=== PATIENT | male | born 1970 | race Caucasian/White ===

== ENCOUNTER 2018-09-23 10:45 | Inpatient (IN) ==
[2018-09-23] MEDS ORDERED: SODIUM CHLORIDE 0.9% 1000ML 1,000 ML IV ONE ×2 (11:39→12:57)
[2018-09-23] MEDS ORDERED: PROMETHAZINE 25 MG/51 ML BAG IV STA (11:39)
[2018-09-23] MEDS ORDERED: MoRPHine SULFATE 4 MG/ML 1 ML CARP\\VIAL IV STA (11:40)
--- NOTE | 2018-09-23 11:45 | Emergency Department Note ---
History of Present Illness General Chief complaint: Vomiting Stated complaint: THROWING UP 3 DAYS, UNABLE TO EAT, PAIN IN ABD Time Seen by Provider: 09/23/18 11:29 History of Present Illness Maximum Pain Intensity: 7 This patient is a 48-year-old male who presents to the emergency department via private vehicle with complaints of vomiting and abdominal pain for the last 4 days. He describes the abdominal pain in his lower abdomen is a cramping, intermittent sensation. He rates his discomfort a 7/10. No hematemesis. No coffee-ground emesis. The patient also has not had a bowel movement in 4 days. This is unusual for him. He denies any known sick contacts. He tried Zofran at home with minimal relief of his symptoms. Home Medications Home Medications Medication Instructions Recorded Confirmed Type amlodipine 10 mg PO DAILY 07/13/18 09/23/18 History aspirin 81 mg PO DAILY 07/13/18 09/23/18 History clopidogrel [Plavix] 75 mg PO DAILY 07/13/18 09/23/18 History duloxetine 60 mg PO DAILY 07/13/18 09/23/18 History lamotrigine [Lamictal] 200 mg PO HS 07/13/18 09/23/18 History losartan 100 mg PO DAILY 07/13/18 09/23/18 History metformin 1,000 mg PO DAILY 07/13/18 09/23/18 History trazodone 100 mg PO HS 07/13/18 09/23/18 History atorvastatin 40 mg PO DAILY #0 tab 07/15/18 09/23/18 Rx insulin glargine [Basaglar KwikPen 22 unit SUBCUT DAILY 08/13/18 09/23/18 History U-100 Insulin] gabapentin 400 mg PO TID 09/23/18 09/23/18 History Allergies Allergy/AdvReac Type Severity Reaction Status Date / Time No Known Allergies Allergy Unverified 09/23/18 11:35 Past Med/Surg History Medical History Diabetes HTN (hypertension) Heart disease Surgical History Hx of foot surgery Hx of heart artery stent Family History Other Cancer Diabetes HTN (hypertension) Heart disease Lung disease Social History Preferred Language: Dominican Communication Ability: Effective Advertising Campaign Manager Required: No Beliefs That Will Affect Care: None marital status: Single Current Living Situation: Alone Current Living Situation Comment: WITH TWO DAUGHTERS current occupational status: employed Other Information That Helps Us Care for You: No Feels Safe at Home: Yes Safety Concerns: Feels Safe At This Time Smoking Status: Unknown if ever smoked Hx Alcohol Use: No Hx Substance Use: No Review of Systems A total of 10 systems reviewed and were otherwise negative Physical Exam Vital Signs Vital Signs - 24 hr 09/23/18 11:04 09/23/18 12:31 09/23/18 13:01 Temperature 36.8 C Temperature Source Oral Sepsis Recent Fever Within 48 Hours No Sepsis New/Unexplained Change in Mental Status No Sepsis Action Taken by Nursing No Action Required Pulse Rate 77 80 82 Pulse Rate [Finger] Pulse Rate from SpO2 Sensor 77 82 Respiratory Rate 18 18 14 Respiratory Effort / Characteristics Non-Labored Spontaneous Respiratory Depth Respiratory Pattern Blood Pressure 122/73 124/83 84/59 L Blood Pressure [Left Arm] Blood Pressure Mean 89 96 67 Blood Pressure Mean [Left Arm] Blood Pressure Position Sitting Blood Pressure Position [Left Arm] Pulse Oximetry 95 92 94 Oxygen Delivery Method Room Air Room Air 09/23/18 13:06 09/23/18 13:30 09/23/18 14:00 Temperature Temperature Source Sepsis Recent Fever Within 48 Hours Sepsis New/Unexplained Change in Mental Status Sepsis Action Taken by Nursing Pulse Rate 82 76 70 Pulse Rate [Finger] Pulse Rate from SpO2 Sensor 81 Respiratory Rate 13 14 15 Respiratory Effort / Characteristics Respiratory Depth Respiratory Pattern Blood Pressure 109/67 98/63 L 109/66 Blood Pressure [Left Arm] Blood Pressure Mean 81 74 80 Blood Pressure Mean [Left Arm] Blood Pressure Position Blood Pressure Position [Left Arm] Pulse Oximetry 94 Oxygen Delivery Method Room Air 09/23/18 14:31 09/23/18 15:00 09/23/18 15:31 Temperature Temperature Source Sepsis Recent Fever Within 48 Hours Sepsis New/Unexplained Change in Mental Status Sepsis Action Taken by Nursing Pulse Rate 70 70 72 Pulse Rate [Finger] Pulse Rate from SpO2 Sensor 71 70 72 Respiratory Rate 14 14 14 Respiratory Effort / Characteristics Respiratory Depth Respiratory Pattern Blood Pressure 105/60 115/68 123/77 Blood Pressure [Left Arm] Blood Pressure Mean 75 83 92 Blood Pressure Mean [Left Arm] Blood Pressure Position Blood Pressure Position [Left Arm] Pulse Oximetry 91 92 96 Oxygen Delivery Method Room Air Room Air 09/23/18 15:53 09/23/18 16:00 09/23/18 16:30 Temperature Temperature Source Sepsis Recent Fever Within 48 Hours Sepsis New/Unexplained Change in Mental Status Sepsis Action Taken by Nursing Pulse Rate 75 71 71 Pulse Rate [Finger] Pulse Rate from SpO2 Sensor 75 71 73 Respiratory Rate 14 12 15 Respiratory Effort / Characteristics Respiratory Depth Respiratory Pattern Blood Pressure 117/75 115/77 128/74 Blood Pressure [Left Arm] Blood Pressure Mean 89 89 92 Blood Pressure Mean [Left Arm] Blood Pressure Position Blood Pressure Position [Left Arm] Pulse Oximetry 94 95 96 Oxygen Delivery Method 09/23/18 17:00 09/23/18 17:22 09/23/18 17:30 Temperature 36.9 C Temperature Source Oral Sepsis Recent Fever Within 48 Hours Sepsis New/Unexplained Change in Mental Status Sepsis Action Taken by Nursing Pulse Rate 70 70 Pulse Rate [Finger] 74 Pulse Rate from SpO2 Sensor Respiratory Rate 14 14 22 Respiratory Effort / Characteristics Non-Labored Spontaneous Respiratory Depth Normal Respiratory Pattern Regular Blood Pressure 144/81 H 144/81 H Blood Pressure [Left Arm] 121/77 Blood Pressure Mean 102 Blood Pressure Mean [Left Arm] 91 Blood Pressure Position Blood Pressure Position [Left Arm] Sitting Pulse Oximetry 96 96 90 Oxygen Delivery Method Room Air Room Air 09/23/18 17:45 Temperature 36.9 C Temperature Source Oral Sepsis Recent Fever Within 48 Hours Sepsis New/Unexplained Change in Mental Status Sepsis Action Taken by Nursing Pulse Rate Pulse Rate [Finger] 74 Pulse Rate from SpO2 Sensor Respiratory Rate 22 Respiratory Effort / Characteristics Respiratory Depth Respiratory Pattern Blood Pressure Blood Pressure [Left Arm] 121/77 Blood Pressure Mean Blood Pressure Mean [Left Arm] 91 Blood Pressure Position Blood Pressure Position [Left Arm] Pulse Oximetry 90 Oxygen Delivery Method Constitutional WD/WN, vitals as above Mild discomfort Eyes EOM intact bilaterally ENMT external ear and nose normal, oropharynx normal (Oral mucosa dry) Neck trachea midline Respiratory normal respiratory effort, lungs clear to auscultation Cardiovascular RRR, no murmur, no edema Gastrointestinal (Abdomen) Abdomen is moderately distended, but soft. Bowel sounds present in all 4 quadrants. Tenderness to palpation in the suprapubic and right lower quadrant. Musculoskeletal no cyanosis or clubbing, extremities motor strength 5/5 Skin no rashes, warm and dry Neurologic Alert and oriented x3. No focal motor deficits. Psychiatric Acting appropriately Course Patient was seen and examined Vital signs including blood pressure were reviewed medications list was verified with patient Labs were obtained, and a saline lock was established Morphine 4 mg IV and Phenergan 25 mg IV were ordered. He was hydrated with 1 L of normal saline. Imaging as per form and reviewed Upon reassessment, the patient was still complaining of pain. He was given Dilaudid 1 mg IV. His workup was reviewed. They were discussed with him. He was in agreement with possible admission. The case was discussed with my supervising physician, case management and the hospitalist service. They kindly agreed to evaluate the patient for possible admission/observation. The patient was ordered 1 additional dose of Dilaudid 1 mg IV in the emergency department. He was also hydrated with an additional liter of saline. Consultations Consultation #1: Dr. Anguiano Administered Medications Gabapentin (Neurontin) 400 mg PO TID NILSA Stop: 10/23/18 20:59 Last Admin: 09/23/18 20:50 Dose: 400 mg Documented by: [id number] Sodium Chloride (Nss 1000ml) 1,000 mls @ 200 mls/hr IV .Q5H NILSA Stop: 09/24/18 08:44 Last Admin: 09/23/18 18:20 Dose: 200 mls/hr Documented by: [id number] Insulin Aspart (Novolog Flexpen) 0 units SC ACHS NILSA Stop: 10/23/18 20:59 Last Admin: 09/23/18 20:51 Dose: 1 units Documented by: [id number] Cosigned by: [id number] Lamotrigine (Lamictal) 200 mg PO HS NILSA Stop: 10/23/18 20:59 Last Admin: 09/23/18 20:49 Dose: 200 mg Documented by: [id number] Trazodone HCl (Desyrel) 100 mg PO HS [facility] Stop: 10/23/18 20:59 Last Admin: 09/23/18 20:50 Dose: 100 mg Documented by: [id number] Discontinued Medications Hydromorphone HCl (Dilaudid) 1 mg IV NOW [facility] Stop: 09/23/18 12:55 Last Admin: 09/23/18 12:57 Dose: 1 mg Documented by: [id number] Hydromorphone HCl (Dilaudid) 1 mg IV NOW ST[facility] Stop: 09/23/18 14:38 Last Admin: 09/23/18 14:51 Dose: 1 mg Documented by: [id number] Promethazine HCl (Phenergan) 25 mg in 51 mls @ 204 mls/hr IV NOW STA Stop: 09/23/18 11:53 Last Infusion: 09/23/18 12:08 Dose: 0 mls/hr Documented by: [id number] Admin: 09/23/18 11:53 Dose: 204 mls/hr Documented by: [id number] Sodium Chloride (Nss 1000ml) 1,000 mls @ 999 mls/hr IV .Q1H1M ONE Stop: 09/23/18 12:39 Last Infusion: 09/23/18 12:27 Dose: 0 mls/hr Documented by: [id number] Admin: 09/23/18 11:53 Dose: 999 mls/hr Documented by: [id number] Sodium Chloride (Nss 1000ml) 1,000 mls @ 999 mls/hr IV .Q1H1M ONE Stop: 09/23/18 13:57 Last Infusion: 09/23/18 14:10 Dose: 0 mls/hr Documented by: [id number] Admin: 09/23/18 13:06 Dose: 999 mls/hr Documented by: [id number] Morphine Sulfate (Morphine Sulfate) 4 mg IV NOW STA Stop: 09/23/18 11:41 Last Admin: 09/23/18 11:53 Dose: 4 mg Documented by: [id number] Ondansetron HCl (Zofran) 4 mg IV NOW STA Stop: 09/23/18 14:38 Last Admin: 09/23/18 14:51 Dose: 4 mg Documented by: [id number] Medical Decision Making Medical Records Attestation: I reviewed the patient's medical records. Home Medications Current Medication List: was personally reviewed by me Laboratory Data Attestation: I reviewed the patient's lab results. Result diagrams: 09/23/18 11:40 09/23/18 11:40 Lab Results 09/23/18 09/23/18 09/23/18 Range/Units 11:40 11:40 11:40 WBC 14.92 H (4.8-10.8) K/uL RBC 5.17 (4.7-6.1) M/uL Hgb 16.7 (14.0-18.0) g/dL Hct 47.0 (42-52) % MCV 90.9 (80-100) fL MCH 32.3 (25-34) pg MCHC 35.5 (32-36) g/dL RDW Std Deviation 40.1 (36.4-46.3) fL RDW Coeff of [place] 12.0 (11.5-14.5) % Plt Count 215 (130-400) K/uL MPV 10.6 H (7.4-10.4) fL Immature Gran % (Auto) 0.3 % Neut % (Auto) 74.0 % Lymph % (Auto) 13.4 % [place] % (Auto) 11.2 % Eos % (Auto) 1.0 % Baso % (Auto) 0.1 % Immature Gran # (Auto) 0.04 H (0.00-0.02) K/uL Neut # (Auto) 11.04 H (1.4-6.5) K/uL Lymph # (Auto) 2.00 (1.2-3.4) K/uL [place] # (Auto) 1.67 H (0.11-0.59) K/uL Eos # (Auto) 0.15 (0-0.5) K/uL Baso # (Auto) 0.02 (0-0.2) K/uL APTT 24.0 (21.0-31.0) Seconds PTT Ratio 0.9 Sodium 130 L (136-145) mmol/L Potassium 4.3 (3.5-5.1) mmol/L Chloride 95 L (98-107) mmol/L Carbon Dioxide 26 (21-32) mmol/L Anion Gap 9.0 (3-11) BUN 44 H (7-18) mg/dl Creatinine 4.48 H (0.6-1.4) mg/dl Est Cr Clr Drug Dosing 29.5 ml/min Est GFR ( Amer) 16.6 Est GFR (Non-Af Amer) 14.4 BUN/Creatinine Ratio 9.8 L (10-20) Glucose 163 H (70-99) mg/dl POC Glucose (70-99) Calcium 8.7 (8.5-10.1) mg/dl Phosphorus (2.5-4.9) mg/dl Magnesium (1.8-2.4) mg/dl Total Bilirubin 1.3 H (0.2-1) mg/dl AST 37 (15-37) U/L ALT 51 (12-78) U/L Alkaline Phosphatase 94 (45-117) U/L Total Protein 7.5 (6.4-8.2) gm/dl Albumin 3.8 (3.4-5.0) gm/dl Globulin 3.7 (2.5-4.0) gm/dl Albumin/Globulin Ratio 1.0 (0.9-2) Lipase 637 H (73-393) U/L Urine Color Urine Appearance (Clear) Urine pH (4.5-7.5) Ur Specific [place] (1.000-1.030) Urine Protein (Negative) Urine Glucose (UA) (Negative) Urine Ketones (Negative) Urine Blood (Negative) Urine Nitrite (Negative) Urine Bilirubin (Negative) Urine Urobilinogen (Negative) Ur Leukocyte Esterase (Negative) Urine RBC (0-4) /hpf Urine WBC (0-5) /hpf Ur Epithelial Cells (0-5) /lpf Urine Bacteria (Negative) 09/23/18 09/23/18 09/23/18 Range/Units 11:40 14:50 17:50 WBC (4.8-10.8) K/uL RBC (4.7-6.1) M/uL Hgb (14.0-18.0) g/dL Hct (42-52) % MCV (80-100) fL MCH (25-34) pg MCHC (32-36) g/dL RDW Std Deviation (36.4-46.3) fL RDW Coeff of [place] (11.5-14.5) % Plt Count (130-400) K/uL MPV (7.4-10.4) fL Immature Gran % (Auto) % Neut % (Auto) % Lymph % (Auto) % [place] % (Auto) % Eos % (Auto) % Baso % (Auto) % Immature Gran # (Auto) (0.00-0.02) K/uL Neut # (Auto) (1.4-6.5) K/uL Lymph # (Auto) (1.2-3.4) K/uL [place] # (Auto) (0.11-0.59) K/uL Eos # (Auto) (0-0.5) K/uL Baso # (Auto) (0-0.2) K/uL APTT (21.0-31.0) Seconds PTT Ratio Sodium (136-145) mmol/L Potassium (3.5-5.1) mmol/L Chloride (98-107) mmol/L Carbon Dioxide (21-32) mmol/L Anion Gap (3-11) BUN (7-18) mg/dl Creatinine (0.6-1.4) mg/dl Est Cr Clr Drug Dosing ml/min Est GFR ( Amer) Est GFR (Non-Af Amer) BUN/Creatinine Ratio (10-20) Glucose (70-99) mg/dl POC Glucose 120 H (70-99) Calcium (8.5-10.1) mg/dl Phosphorus 4.1 (2.5-4.9) mg/dl Magnesium 2.1 (1.8-2.4) mg/dl Total Bilirubin (0.2-1) mg/dl AST (15-37) U/L ALT (12-78) U/L Alkaline Phosphatase (45-117) U/L Total Protein (6.4-8.2) gm/dl Albumin (3.4-5.0) gm/dl Globulin (2.5-4.0) gm/dl Albumin/Globulin Ratio (0.9-2) Lipase (73-393) U/L Urine Color Yellow Urine Appearance Clear (Clear) Urine pH 6.0 (4.5-7.5) Ur Specific [place] 1.008 (1.000-1.030) Urine Protein Trace H (Negative) Urine Glucose (UA) Negative (Negative) Urine Ketones Negative (Negative) Urine Blood Negative (Negative) Urine Nitrite Negative (Negative) Urine Bilirubin Negative (Negative) Urine Urobilinogen Negative (Negative) Ur Leukocyte Esterase Negative (Negative) Urine RBC 0-4 (0-4) /hpf Urine WBC 0-5 (0-5) /hpf Ur Epithelial Cells >30 H (0-5) /lpf Urine Bacteria Negative (Negative) 09/23/18 Range/Units 20:05 WBC (4.8-10.8) K/uL RBC (4.7-6.1) M/uL Hgb (14.0-18.0) g/dL Hct (42-52) % MCV (80-100) fL MCH (25-34) pg MCHC (32-36) g/dL RDW Std Deviation (36.4-46.3) fL RDW Coeff of [place] (11.5-14.5) % Plt Count (130-400) K/uL MPV (7.4-10.4) fL Immature Gran % (Auto) % Neut % (Auto) % Lymph % (Auto) % [place] % (Auto) % Eos % (Auto) % Baso % (Auto) % Immature Gran # (Auto) (0.00-0.02) K/uL Neut # (Auto) (1.4-6.5) K/uL Lymph # (Auto) (1.2-3.4) K/uL [place] # (Auto) (0.11-0.59) K/uL Eos # (Auto) (0-0.5) K/uL Baso # (Auto) (0-0.2) K/uL APTT (21.0-31.0) Seconds PTT Ratio Sodium (136-145) mmol/L Potassium (3.5-5.1) mmol/L Chloride (98-107) mmol/L Carbon Dioxide (21-32) mmol/L Anion Gap (3-11) BUN (7-18) mg/dl Creatinine (0.6-1.4) mg/dl Est Cr Clr Drug Dosing ml/min Est GFR ( Amer) Est GFR (Non-Af Amer) BUN/Creatinine Ratio (10-20) Glucose (70-99) mg/dl POC Glucose 195 H (70-99) Calcium (8.5-10.1) mg/dl Phosphorus (2.5-4.9) mg/dl Magnesium (1.8-2.4) mg/dl Total Bilirubin (0.2-1) mg/dl AST (15-37) U/L ALT (12-78) U/L Alkaline Phosphatase (45-117) U/L Total Protein (6.4-8.2) gm/dl Albumin (3.4-5.0) gm/dl Globulin (2.5-4.0) gm/dl Albumin/Globulin Ratio (0.9-2) Lipase (73-393) U/L Urine Color Urine Appearance (Clear) Urine pH (4.5-7.5) Ur Specific [place] (1.000-1.030) Urine Protein (Negative) Urine Glucose (UA) (Negative) Urine Ketones (Negative) Urine Blood (Negative) Urine Nitrite (Negative) Urine Bilirubin (Negative) Urine Urobilinogen (Negative) Ur Leukocyte Esterase (Negative) Urine RBC (0-4) /hpf Urine WBC (0-5) /hpf Ur Epithelial Cells (0-5) /lpf Urine Bacteria (Negative) Imaging Data Attestation: I personally reviewed and interpreted this imaging study as follows: Radiologist's Impression: CT of the abdomen and pelvis with IV and oral contrast IMPRESSION: 1. No acute intra-abdominal pathology. 2. Hepatic steatosis. Correlate with liver function tests to exclude steatohepatitis as a cause for abdominal pain. 3. Mild cardiomegaly. Electronically signed by: Lauro Gautam M.D. 09/23/2018 2:27 PM CXR MPRESSION: No acute cardiopulmonary abnormality. Electronically signed by: Jonathan Tran M.D. 09/23/2018 12:37 PM Dictated: 09/23/18 1236 Transcribed: 09/23/18 1236 [facility] Narrative DIFFERENTIAL DIAGNOSIS: Viral/bacterial GI illness, bowel obstruction, pancreatitis, choledocholithiasis, cholecystitis, diverticulitis, appendicitis, among others This patient is a 48-year-old male presents to the emergency department with complaints of persistent vomiting and abdominal pain. On exam, his vital signs were stable. He was dry. He did have tenderness in the lower abdomen. His labs revealed leukocytosis. He was also hyponatremic. He is in acute renal failure. CT of the abdomen and pelvis were performed and did not show any acute findings. The etiology of his renal failure is unclear, but vomiting is likely contributing. I do not feel comfortable sending the patient home. The [facility] hospitalist service was consulted. They will evaluate the patient for further workup and treatment. Impression & Plan ARF (acute renal failure) Discharge Plan Visit Data *Final* Discharge Date/Time: 09/23/18 17:22 Chief Complaint: Vomiting Stated Complaint: THROWING UP 3 DAYS, UNABLE TO EAT, PAIN IN ABD ED Provider: Kelle Grimm ED Midlevel Provider: Unique Dumont Discharge Problem: ARF (acute renal failure) Patient Disposition: Admitted As Inpatient Discharge Instructions Interventions: ED Discharge Assessment Last Done: 09/23/18 17:22 Discharge Problem: ARF (acute renal failure) Qualifiers: Acute renal failure type: unspecified Qualified Code(s): N17.9 - Acute kidney failure, unspecified
[2018-09-23 11:59] LABS: Basophils # (auto) 0.02 K/uL (0-0.2); Basophils % (auto) 0.1 %; Eosinophils # (auto) 0.15 K/uL (0-0.5); Hemoglobin 16.7 g/dL (14.0-18.0); Immature Granulocytes # (auto) 0.04 K/uL (0.00-0.02); Immature Granulocytes % (auto) 0.3 %; Lymphocytes % (auto) 13.4 %; Mean Corpuscular Hgb Conc 35.5 g/dL (32-36); Mean Corpuscular Volume 90.9 fL (80-100); Mean Platelet Volume 10.6 fL (7.4-10.4); Monocytes # (auto) 1.67 K/uL (0.11-0.59); Monocytes % (auto) 11.2 %; Neutrophils # (auto) 11.04 K/uL (1.4-6.5); Platelet Count 215 K/uL (130-400); RDW Standard Deviation 40.1 fL (36.4-46.3); Red Blood Count 5.17 M/uL (4.7-6.1); White Blood Count 14.92 K/uL (4.8-10.8)
[2018-09-23 12:15] LABS: Partial Thromboplastin Ratio 0.9
[2018-09-23 12:21] LABS: Albumin Level 3.8 gm/dl (3.4-5.0); BUN Creatinine Ratio 9.8 (10-20); Bilirubin,Total 1.3 mg/dl (0.2-1); Calcium 8.7 mg/dl (8.5-10.1); Creatinine Clr Calc Pharmacy 29.5 ml/min; Est GFR (African American) 16.6; Est GFR (Non-African American) 14.4; Globulin 3.7 gm/dl (2.5-4.0); Potassium 4.3 mmol/L (3.5-5.1); Total Protein 7.5 gm/dl (6.4-8.2)
--- NOTE | 2018-09-23 12:39 | XRay Report ---
SINGLE VIEW CHEST CLINICAL HISTORY: Productive cough. Nausea. FINDINGS: An AP, portable, upright chest radiograph is compared to study dated 08/13/2018 and correlat ed with chest CT dated 07/15/2018. The examination is degraded by portable technique and patient rota tion. The cardiomediastinal silhouette is unremarkable. There is bibasilar atelectasis. The lungs an d pleural spaces are otherwise clear. No pneumothorax is seen. The bony thorax is grossly intact. IMPRESSION: No acute cardiopulmonary abnormality. Electronically signed by: Jonathan Tran M.D. 09/23/2018 12:37 PM
[2018-09-23] MEDS ORDERED: HYDROmorphone INJ 1 MG/ML SYRINGE IV STA ×2 (12:54→14:37)
--- NOTE | 2018-09-23 14:28 | CT Scan Report ---
CT abd pelvis oral con only CLINICAL HISTORY: 48 years-old Male presenting with lower abd pain vomiting renal failure. TECHNIQUE: Multidetector CT of the abdomen and pelvis was performed after the administration of oral contrast only. IV contrast: None. One or more dose lowering techniques were used consistent with the principles of ALARA (as low as reasonably achievable), including automatic exposure control, mA or kV adjustment to individual patient size, and/or use of iterative reconstruction. COMPARISON: None. CT DOSE (mGy.cm): The estimated cumulative dose is 1985.04 mGy.cm. FINDINGS: Food Manager topogram: Unremarkable. Lung bases: Mild multichamber enlargement of the heart. Coronary artery calcification. No pericardial or pleural effusion. Minimal dependent changes likely atelectasis. Liver: Normal morphology. Density consistent with hepatic steatosis. Biliary: No gross biliary ductal dilatation allowing for noncontrast technique. Normal gallbladder. Pancreas: Mild parenchymal atrophy. Spleen: Normal noncontrast appearance. Adrenal glands: Normal noncontrast appearance. Kidneys and ureters: Mild bilateral perinephric fat infiltration, nonspecific. No nephrolithiasis or hydronephrosis. Normal noncontrast appearance of the renal parenchyma. Ureters nondilated. Bladder: Normal. Pelvic organs: Normal noncontrast appearance. Bowel: Normal appendix. No bowel obstruction. Contrast in the distal esophagus consistent with gastro esophageal reflux. Peritoneal cavity: No free fluid or intraperitoneal gas. Lymph nodes: No enlarged lymph nodes in the abdomen or pelvis. Vasculature: Atherosclerosis of the normal caliber abdominal aorta. Abdominal wall: Fat-containing left internal hernia suggested. Gynecomastia. Musculoskeletal: Normal. IMPRESSION: 1. No acute intra-abdominal pathology. 2. Hepatic steatosis. Correlate with liver function tests to exclude steatohepatitis as a cause for abdominal pain. 3. Mild cardiomegaly. Electronically signed by: Lauro Gautam M.D. 09/23/2018 2:27 PM
[2018-09-23] MEDS ORDERED: ONDANSETRON INJ 2 MG/ML 2 ML VIAL IV STA (14:37)
[2018-09-23 15:22] LABS: Appearance Urine Clear (Clear); Bilirubin Urine Negative (Negative); Blood Urine Negative (Negative); Color Urine Yellow; Glucose Urine UA Negative (Negative); Ketones Urine Negative (Negative); Leukocyte Esterase Urine Negative (Negative); Nitrite Urine Negative (Negative); Protein Urine Trace (Negative); Specific Gravity Urine 1.008 (1.000-1.030); Urobilinogen Urine Negative (Negative)
[2018-09-23 16:01] LABS: Bacteria Urine Negative (Negative); Epithelial Cell Urine >30 /lpf (0-5); RBC Urine 0-4 /hpf (0-4); WBC Urine 0-5 /hpf (0-5)
--- NOTE | 2018-09-23 16:06 | History & Physical Report ---
Date of Service September 23, 2018 Assessment & Plan (1) ARF (acute renal failure): 48 y/o M Hx HTN, HLD, DM II, neuropathy, bipolar disorder, CAD/stents. Presents with 4 days of nausea/vomiting and minimal PO intake. Denies diarrhea and may be constipated. He does report cramping, generalized abdominal pain. A CT abdomen did not show any acute pathology. Initial labs are notable for ARF with a creatinine of 4.5, hyponatremia and minimal lipase elevation. 1) ARF - hopefully this is due to dehydration/prerenal due to nausea and vomiting. He will be aggressively hydrated overnight. We will obtain urine lytes and repeat a BMP AM. If there is no short-term improvement we will consul t nephrology. 2) Nausea and vomiting - clears, antiemetics, IVF as above - He was admitted recently with nausea and vomiting of undetermined etiology so that we will advise him on cessation of marijuana. 3) DM II - placed on a SS 4) HTN - losartan held due to ARF, cont Norvasc 5) CAD - no evidence of ACS - cont Plavix, ASA, statin 6) Neuropathy - cont Gabapentin 7) Bipolar disease - cont Lamotrigine Full code - Heparin prophylaxis Total time for this admit including review of labs, meds, imaging, records - discussion with pt and ER attending - 35 min Present on Admission?: Yes History of Present Illness Chief Complaint: intractable nausea and vomiting Primary Care Provider: Drik Suarez, 48 y/o M Hx HTN, HLD, DM II, neuropathy, bipolar disorder, CAD/stents. Presents with 4 days of nausea/vomiting and minimal PO intake. Denies diarrhea and may be constipated. He does report cramping, generalized abdominal pain. A CT abdomen did not show any acute pathology. Initial labs are notable for ARF with a creatinine of 4.5, hyponatremia and minimal lipase elevation. PMH: 1) DM II 2) BL Lower extremity neuromas 3) CAD - 2 stents - OM2 - distal LAD and RCA disease reported 4) HTN 5) HLD 6) Bipolar Surgical: BL LE neuroma surgery, 2 cardiac stents Social: Quit smoking in 2007 - 30 pack year Hx Smokes marijuana frequently, although not daily Social ETOH Family: Mother with CAD in 40s Sister with CAD age 35 Allergies Allergy/AdvReac Type Severity Reaction Status Date / Time No Known Allergies Allergy Unverified 09/23/18 11:35 Home Medications Home Medications Medication Instructions Recorded Confirmed Type amlodipine 10 mg PO DAILY 07/13/18 09/23/18 History aspirin 81 mg PO DAILY 07/13/18 09/23/18 History clopidogrel [Plavix] 75 mg PO DAILY 07/13/18 09/23/18 History duloxetine 60 mg PO DAILY 07/13/18 09/23/18 History lamotrigine [Lamictal] 200 mg PO HS 07/13/18 09/23/18 History losartan 100 mg PO DAILY 07/13/18 09/23/18 History metformin 1,000 mg PO DAILY 07/13/18 09/23/18 History trazodone 100 mg PO HS 07/13/18 09/23/18 History atorvastatin 40 mg PO DAILY #0 tab 07/15/18 09/23/18 Rx insulin glargine [Basaglar KwikPen 22 unit SUBCUT DAILY 08/13/18 09/23/18 History U-100 Insulin] gabapentin 400 mg PO TID 09/23/18 09/23/18 History Past Med/Surg History Medical History Diabetes HTN (hypertension) Heart disease Surgical History Hx of foot surgery Hx of heart artery stent Family History Other Cancer Diabetes HTN (hypertension) Heart disease Lung disease Social History Preferred Language: Romanian Beliefs That Will Affect Care: None marital status: Single Current Living Situation: Family Current Living Situation Comment: WITH TWO DAUGHTERS current occupational status: employed Feels Safe at Home: Yes Smoking Status: Former smoker Hx Alcohol Use: No Hx Substance Use: Yes Review of Systems Gen: Denies fevers, night sweats, rigors, fatigue, malaise, weight loss/gain ENT: Denies congestion, throat pain, hearing loss Eyes: Denies acute visual changes CV: Denies CP, palpitations Pulmonary: Denies SOB, cough, wheezing GI: N/V, abdominal pain as per HPI Neuro: Denies acute or unilateral weakness, acute gait impairment, headache or acute visual changes Musculoskeletal: Denies joint pain, inflammation - chronic LE pain due to neuromas Endocrine: Denies polydipsia, polyuria Skin: Denies acute rashes or ulcers Physical Exam Vital Signs (Past 24 Hours): Last Vital Signs Temp 36.8 C 09/23/18 11:04 Pulse 75 09/23/18 15:53 Resp 14 09/23/18 15:53 BP 117/75 09/23/18 15:53 Pulse Ox 94 09/23/18 15:53 Physical Exam: General: AAO x 3, no distress ENT: No erythema or exudates, no thrush Eyes: TANVIR, EOMI Head and neck: Normocephalic, atraumatic, No JVD, neck is supple. Chest/heart: Nontender, S1,2, RRR, no murmurs, no gallops Lungs: CTAB, no wheezing or crackles Abdomen: Nontender, nondistended, BS+ Neuro: AAO x 3, speech is clear, no unilateral weakness or loss of sensation, coordination intact Musculoskeletal: No joint inflammation, muscle tenderness, FROM Skin: No acute rashes or ulcers Extremities: No clubbing, cyanosis, edema Results & Data Diagnostic Findings CT abdomen: 1. No acute intra-abdominal pathology. 2. Hepatic steatosis. Correlate with liver function tests to exclude steatohepatitis as a cause for abdominal pain. 3. Mild cardiomegaly EKG: NSR, RBBB
[2018-09-23 16:50] LABS: Magnesium 2.1 mg/dl (1.8-2.4); Phosphorus 4.1 mg/dl (2.5-4.9)
[2018-09-23] MEDS ORDERED: METOCLOPRAMIDE HCL INJ 5 MG/ML 2 ML VIAL IV PRN (17:45)
[2018-09-23] MEDS ORDERED: POLYETHYLENE (MIRALAX) 17 GM PACK PO PRN (17:45)
[2018-09-23] MEDS ORDERED: ACETAMINOPHEN 325 MG TAB PO PRN (17:45)
[2018-09-23] MEDS ORDERED: INSULIN ASPART 100 UNITS/ML 3 ML PEN SC SCH (18:00)
[2018-09-23] MEDS: SODIUM CHLORIDE 0.9% 1000ML 1,000 ML IV SCH ×2 (18:20→23:22)
[2018-09-23] MEDS ORDERED: GLUCOSE 40% GEL 15 GM TUBE PO PRN (18:45)
[2018-09-23] MEDS ORDERED: DEXTROSE 50% 50 ML SYRINGE IV PRN (18:45)
[2018-09-23] MEDS ORDERED: GLUCAGON FOR INJ 1 MG VIAL IM PRN (18:45)
[2018-09-23] MEDS ORDERED: CARBOHYDRATES FOR HYPOGLYCEMIA PO PRN (18:45)
[2018-09-23] MEDS ORDERED: GLUCOSE 10 TABS/TUBE PO PRN (18:45)
[2018-09-23] MEDS: lamoTRIgine 100 MG TAB PO SCH (20:49)
[2018-09-23] MEDS: TRAZODONE HCL 100 MG TAB PO SCH (20:50)
[2018-09-23] MEDS: GABAPENTIN 400 MG CAP PO SCH (20:50)
[2018-09-23] MEDS: INSULIN ASPART 100 UNITS/ML 3 ML PEN SC SCH (20:51)
[2018-09-24] MEDS: SODIUM CHLORIDE 0.9% 1000ML 1,000 ML IV SCH (06:04)
[2018-09-24] MEDS: DULOXETINE HCL 60 MG CAP PO SCH (07:35)
[2018-09-24] MEDS: AMLODIPINE BESYLATE 5 MG TAB PO SCH (07:35)
[2018-09-24] MEDS: ASPIRIN 81 MG ECTAB PO SCH (07:36)
[2018-09-24] MEDS: CLOPIDOGREL BISULFATE 75 MG TAB PO SCH (07:36)
[2018-09-24] MEDS: ATORVASTATIN 40 MG TAB PO SCH (07:36)
[2018-09-24] MEDS: GABAPENTIN 400 MG CAP PO SCH (07:36)
[2018-09-24] MEDS: INSULIN ASPART 100 UNITS/ML 3 ML PEN SC SCH ×5 (08:58→21:10)
[2018-09-24] MEDS ORDERED: INSULIN GLARGINE SOLOSTAR 100 UNITS/ML 3 ML PEN SQ SCH (09:00)
[2018-09-24 09:37] LABS: Creatinine Urine Random 47.3 mg/dl
[2018-09-24 09:55] LABS: BUN Creatinine Ratio 10.4 (10-20); Calcium 8.2 mg/dl (8.5-10.1); Creatinine Clr Calc Pharmacy 34.1 ml/min; Est GFR (African American) 19.9; Est GFR (Non-African American) 17.1; Magnesium 2.4 mg/dl (1.8-2.4); Potassium 4.1 mmol/L (3.5-5.1)
[2018-09-24 09:56] LABS: Phosphorus 3.5 mg/dl (2.5-4.9)
[2018-09-24] MEDS ORDERED: METOPROLOL TARTRATE 25 MG TAB PO SCH (10:30)
[2018-09-24] MEDS ORDERED: SODIUM CHLORIDE 0.9% 1000ML 1,000 ML IV SCH (10:30)
--- NOTE | 2018-09-24 11:43 | Nephrology Consultation ---
Date of Consultation September 24, 2018 Assessment & Plan (1) ARF (acute renal failure): Mr. Mensah is a 48-year-old male with obesity, diabetes mellitus II, hypertension, NAVARRO, hyperlipidemia, bipolar disorder, neuropathy with chronic pain, and coronary artery disease. He was admitted with 4 days of nausea/vomiting and minimal PO intake. Baseline creatinine is normal (<1 mg/dL in July 2018). UA in June was negative for proteinuria. Current UA notable for trace protein but otherwise bland. Urine microscopy did not demonstrate any WBCs, RBCs or casts. CT of the abdomen without IV contrast demonstrated normal appearing kidneys. Clinical presentation is consistent with prerenal azotemia and ATN. Metformin and losartan have been held. Medications are currently appropriate for kidney function. Creatinine improved from 4.5 mg/dL on admission to 3.7 mg/dL now. Electrolytes are appropriate. BP is elevated but home medications have now been restarted. Volume status appears euvolemic. I/O's will be monitored. Metabolic profile will be checked q 12 hours. IV saline will be held while diet is advanced. There is no current indication for dialysis. (2) HTN (hypertension): Imdur restarted as well as home dose metoprolol. Will continue to monitor. Suggest holding IVF. Accelerated buy patient asymptomatic. Continue to hold losartan. (3) CAD (coronary artery disease): (4) DMII (diabetes mellitus, type 2): Metformin held due to NAPOLEON. History of Present Illness Reason for Consultation: Acute renal insufficiency Requesting Physician: Sharona Priest MD Attending Physician: Sharona Priest MD History of Present Illness Mr. Richard Mensah is a 48-year-old male who presented to [facility] with nausea and vomiting. The patient lives in [place] [facility] [facility]. He frequently visits his girlfriend in [facility]. He was recently admitted to [facility] Symptoms had been persistent for approximately 4 days. He reports that his father's girlfriend recently recovered from influenza but there are no other sick contacts that he is aware of. Symptoms were similar to nausea and vomiting experienced prior to his hospital ization at [facility] in June 2018. Symptoms are sudden in onset. They are associated with decreased appetite and difficulty keeping medications and food down. Symptoms are associated with epigastric discomfort. He also describes and bandlike abdominal cramping across his upper abdomen and into his back. Vomiting has been bilious. He denies blood or coffee ground emesis. Symptoms have improved. Mr. Mensah also notes that symptoms improve with warm showers. The patient's medical history is notable for obesity, diabetes mellitus II, hypertension, NAVARRO, hyperlipidemia, bipolar disorder, neuropathy with chronic pain, and coronary artery disease. There is no history of kidney disease. Baseline creatinine in July was normal (0.9 mg/dL). Mr. Mensah underwent surgery for a neuroma in his foot several months ago. He was evaluated in the ER at [facility] in July for foot pain and nausea. He was provided pain medications with follow up arranged with his surgeon. He was admitted to [facility] in June 2018 with nausea, vomiting, and atypical chest pain. Recent history includes NSTEMI in October 2017 for which he underwent PCI x 2 at [facility]. Subsequently, POBA to distal LAD was performed. In June, stress echocardiography at 81% MPHR did not demonstrate any evidence of ischemia. LV was normal on echocardiogram. BP was accelerated during the hospitalization and frequency PVC's were noted. Metoprolol was increased to 50 mg BID and isosorbide was started. It was suspected that some of his GI symptoms may be associated with cyclical vomiting syndrome related to marijuana use. Mr. Mensah was seen and evaluated with his girlfriend at the bedside today. He was comfortable at the time of my assessment. I discussed the plan of care with Dr. Priest. Laboratory studies on admission [place] [id number], mild hyponatremia and increased creatinine of 4.5 mg/dL. IV saline (>4 L) was provided overnight. Lipase mildly elevated at 630. Creatinine improved to 3.87 mg/dL this afternoon. The patient is tolerating PO fluids. He has not vomited today. He is non oliguric and denies any urinary complaints. CXR on admission was unremarkable. CT of the abdomen w/o IV contrast demonstrated normal appearing kidneys. The patient denies significant NSAID use. He has been diabetic for several years. Blood glucose levels have been running high. Diabetes is managed with metformin and glargine. He has known neuropathy. Gabapentin is being weaned while the patient is transitioned to lyrica. Allergies Allergy/AdvReac Type Severity Reaction Status Date / Time No Known Allergies Allergy Unverified 09/23/18 11:35 Home Medications Home Medications Medication Instructions Recorded Confirmed Type amlodipine 10 mg PO DAILY 07/13/18 09/23/18 History aspirin 81 mg PO DAILY 07/13/18 09/23/18 History clopidogrel [Plavix] 75 mg PO DAILY 07/13/18 09/23/18 History duloxetine 60 mg PO DAILY 07/13/18 09/23/18 History lamotrigine [Lamictal] 200 mg PO HS 07/13/18 09/23/18 History losartan 100 mg PO DAILY 07/13/18 09/23/18 History metformin 1,000 mg PO DAILY 07/13/18 09/23/18 History trazodone 100 mg PO HS 07/13/18 09/23/18 History atorvastatin 40 mg PO DAILY #0 tab 07/15/18 09/23/18 Rx insulin glargine [Basaglar KwikPen 30 unit SUBCUT DAILY 08/13/18 09/24/18 History U-100 Insulin] gabapentin 400 mg PO TID 09/23/18 09/23/18 History isosorbide mononitrate 30 mg PO QAM 09/24/18 09/24/18 History metoprolol tartrate 50 mg PO BID 09/24/18 09/24/18 History pregabalin [Lyrica] 100 mg PO BID 09/24/18 09/24/18 History Patient History Medical History Diabetes HTN (hypertension) Heart disease Surgical History Hx of foot surgery Hx of heart artery stent Family History Other Cancer Diabetes HTN (hypertension) Heart disease Lung disease Social History Preferred Language: Vietnamese Communication Ability: Effective Negotiator Required: No Beliefs That Will Affect Care: None marital status: Single Current Living Situation: Alone Current Living Situation Comment: WITH TWO DAUGHTERS current occupational status: employed Other Information That Helps Us Care for You: No Feels Safe at Home: Yes Safety Concerns: Feels Safe At This Time Smoking Status: Unknown if ever smoked Hx Alcohol Use: No Hx Substance Use: No Review of Systems Constitutional: + anorexia; no fever, no chills and no fatigue Eyes: no problem reported Ear, Nose, Mouth, Throat: no problem reported Respiratory: no problem reported Cardiovascular: no chest pain, no palpitations, no edema and no problem reported Gastrointestinal: as per Subjective / HPI, + abdominal pain, + nausea and + vomiting; no hematemesis and no diarrhea/loose stools Genitourinary (Male): no dysuria, no difficulty urinating, no hematuria and no problem reported Musculoskeletal: no problem reported Integumentary: no problem reported Neurologic: no problem reported Psychiatric: no problem reported Hematologic / Lymphatic: no problem reported Physical Exam Vital Signs (Past 24 Hours): Last Vital Signs Temp 36.9 C 09/24/18 07:34 Pulse 86 09/24/18 07:34 Resp 18 09/24/18 07:34 BP 159/103 H 09/24/18 07:34 Pulse Ox 93 09/24/18 07:34 Constitutional: well developed; no acute distress, not ill appearing and not edematous Eyes: + anicteric sclerae; no scleral abnormality and no corneal abnormality ENMT: Mouth: no oral mucosal abnormality and oral mucous membranes not dry Neck: + thick neck Thyroid: normal thyroid Respiratory: no respiratory distress Auscultation: lungs clear to auscultation bilaterally and + rales (few basilar) Cardiovascular: Rate/Rhythm: regular rate Heart Sounds: normal S1 and normal S2; no gallop, no murmur and no cardiac rub Gastrointestinal (Abdomen): Inspection/Auscultation: + abdomen distended Percussion/Palpation: + abdomen tender (mild epigastric); no guarding Musculoskeletal: Extremities: no cyanosis and no clubbing Skin: no rashes, warm and dry Neurologic: Motor/Sensory: no tremor and no asterixis Psychiatric: Affect: euthymic affect Results & Data Laboratory Results Laboratory Results - last 24 hr 09/23/18 09/23/18 09/23/18 11:40 11:40 14:50 Sodium 130 L Potassium 4.3 Chloride 95 L Carbon Dioxide 26 Anion Gap 9.0 BUN 44 H Creatinine 4.48 H Est Cr Clr Drug Dosing 29.5 Est GFR ( Amer) 16.6 Est GFR (Non-Af Amer) 14.4 BUN/Creatinine Ratio 9.8 L Glucose 163 H POC Glucose Calcium 8.7 Phosphorus 4.1 Magnesium 2.1 Total Bilirubin 1.3 H AST 37 ALT 51 Alkaline Phosphatase 94 Total Protein 7.5 Albumin 3.8 Globulin 3.7 Albumin/Globulin Ratio 1.0 Lipase 637 H Urine Color Yellow Urine Appearance Clear Urine pH 6.0 Ur Specific [place] 1.008 Urine Protein Trace H Urine Glucose (UA) Negative Urine Ketones Negative Urine Blood Negative Urine Nitrite Negative Urine Bilirubin Negative Urine Urobilinogen Negative Ur Leukocyte Esterase Negative Urine RBC 0-4 Urine WBC 0-5 Ur Epithelial Cells >30 H Urine Bacteria Negative Ur Random Creatinine Ur Random Sodium 09/23/18 09/23/18 09/24/18 17:50 20:05 07:40 Sodium Potassium Chloride Carbon Dioxide Anion Gap BUN Creatinine Est Cr Clr Drug Dosing Est GFR ( Amer) Est GFR (Non-Af Amer) BUN/Creatinine Ratio Glucose POC Glucose 120 H 195 H 125 H Calcium Phosphorus Magnesium Total Bilirubin AST ALT Alkaline Phosphatase Total Protein Albumin Globulin Albumin/Globulin Ratio Lipase Urine Color Urine Appearance Urine pH Ur Specific [place] Urine Protein Urine Glucose (UA) Urine Ketones Urine Blood Urine Nitrite Urine Bilirubin Urine Urobilinogen Ur Leukocyte Esterase Urine RBC Urine WBC Ur Epithelial Cells Urine Bacteria Ur Random Creatinine Ur Random Sodium 09/24/18 09/24/18 08:50 Unknown Sodium 135 L Potassium 4.1 Chloride 103 Carbon Dioxide 23 Anion Gap 9.0 BUN 40 H Creatinine 3.87 H D Est Cr Clr Drug Dosing 34.1 Est GFR ( Amer) 19.9 Est GFR (Non-Af Amer) 17.1 BUN/Creatinine Ratio 10.4 Glucose 196 H POC Glucose Calcium 8.2 L Phosphorus 3.5 Magnesium 2.4 Total Bilirubin AST ALT Alkaline Phosphatase Total Protein Albumin Globulin Albumin/Globulin Ratio Lipase Urine Color Urine Appearance Urine pH Ur Specific [place] Urine Protein Urine Glucose (UA) Urine Ketones Urine Blood Urine Nitrite Urine Bilirubin Urine Urobilinogen Ur Leukocyte Esterase Urine RBC Urine WBC Ur Epithelial Cells Urine Bacteria Ur Random Creatinine 47.3 Ur Random Sodium 40 (1) ARF (acute renal failure) Acute renal failure type: unspecified Qualified Code(s): N17.9 - Acute kidney failure, unspecified (2) DMII (diabetes mellitus, type 2) Diabetes mellitus assisted insulin use: without assisted use Diabetes mellitus complication status: with hyperglycemia Qualified Code(s): E11.65 - Type 2 diabetes mellitus with hyperglycemia
--- NOTE | 2018-09-24 11:46 | Hospitalist Progress Note ---
Date of Service September 24, 2018 Assessment & Plan (1) ARF (acute renal failure): This patient is a 48 y/o M Hx HTN, HLD, DM II, neuropathy, MDD, CAD/stents. Presents with 4 days of nausea/vomiting and minimal PO intake that came on suddenly. Denies diarrhea and is actually constipated x 4-5 days. He does report cramping, lower abdominal pain moe is worse with movement. A CT abdomen did not show any acute pathology. Initial labs are notable for ARF with a creatinine of 4.5, hyponatremia and minimal lipase elevation. NAPOLEON likely secondary to some prerenal injury from dehydration, N/V with some ATN. FeNa is 2.4% which is more consistent with ATN. UA bland. Long Term Care Phlebotomist already improving today with 3.5L of IVFs. Getting somewhat volume overloaded now, is making urine. CT abd/pel without obstruction Lytes ok and no acidosis BPs elevated but could be from missing doses of antihypertensives -dc IVFs -follow BMP bid -Appreciate Nephrology consultation -avoid nephrotoxins -dcd Lyrica, gabapentin for now, hold losartan -if BP remains high, consider renal Doppler (2) Nausea & vomiting: Could be secondary to viral GE as had recent sick contact with the flu although no diarrhea and no fevers Could be cyclical vomiting from marijuana use as he had similar symptoms on admission in 06/2018-consider hot shower, encouraged cessation from marijuana which he uses for pain control -better today -advance diet as tolerated -continue antiemetics prn -dc IVF (3) Constipation: secondary to opioid use and poor po intake lower abd pain more MSK from vomiting CT abd/pel negative for acute issue in abdomen -start senna/docusate daily -Miralax prn ordered (4) HTN (hypertension): BPs uncontrolled as did not get a lot of hisusual meds -also, holding losartan for NAPOLEON -continue amlodipine -added back home isosorbide, metoprolol 50mg po bid (5) CAD (coronary artery disease): With h/o 2 GIOVANI placed in 2nd OM 10/2017 and then POBA to mid LAD 04/2018 in [facility] Here with no evidence of ACS - cont Plavix, ASA, statin, isosorbide, metoprolol (6) DMII (diabetes mellitus, type 2): Increase Lantus to 25 units (usual home dose 30 units) as having hyperglycemia here -SSI with Novolog -follow glucose checks -ADA diet (7) Obesity: BMI 35.2 (8) Major depressive disorder: stable, in remission as per patient Yet, states that if he ended up requiring even temporary hemodialysis, he would refuse it Denies SI -continue lamictal (9) Neuropathy: With severe neuropathic pain in bilateral feet and legs Also smokes marijuana frequently for pain control -given renal failure, will hold gabapentin and Lyrica (has been tapering off ericka and titrating up Lyrica) -add on oxycodone 5mg po q4h prn pain as he reports he has been taking this as prescribed by Pain Management MD in [place] -attempted to check PDMP website x 2 and website was down today so could not verify this (10) Marijuana abuse: Smokes marijuana for pain control, reports coughing up cotton sputum at times -advised cessation (11) Hyperlipidemia: continue statin (12) Abdominal pain: MSK in nature secondary to multiple vomiting episodes, is worse with twising or movement CT abd neg -follow -bowel regimen (13) Internal hernia: noted on CT scan, not causing pain or problems at this time-pt notified (14) DVT prophylaxis: Heparin SQ added Dispo-remain inhospital likely for several days for NAPOLEON/ATN Subjective Pt anxious about his diagnosis of renal failure. We reviewed his history thoroughly today and corrected all the omitted medications from his home med rec--was missing several BPs meds. He was currently tapering off gabapentin and titrating up on Lyrica. He reports 4 days of vomiting and very poor po intake, wasn't even able to keep water down. Now feeling better with antiemetics and wants to eat a cheesburger today. No BM in 5 days but very poor po intake. I discussed the case at length with Nephrology Review of Systems All systems reviewed & are unremarkable except as noted in HPI & below Physical Exam Vital Signs (Past 24 Hours): Last Vital Signs Temp 36.9 C 09/24/18 07:34 Pulse 86 09/24/18 07:34 Resp 18 09/24/18 07:34 BP 159/103 H 09/24/18 07:34 Pulse Ox 93 09/24/18 07:34 Constitutional: WD/WN, vitals as above Eyes: PERRL, conjunctivae normal, anicteric sclerae ENMT: external ear and nose normal, oropharynx normal (MMM) Neck: trachea midline, no thyromegaly Respiratory: normal respiratory effort; no respiratory distress Auscultation: + crackles (bibasilar); no rhonchi and no wheezes Cardiovascular: Rate/Rhythm: regular rate and regular rhythm Heart Sounds: no murmur Extremities: + edema (trace pitting edema legs bilat) Gastrointestinal (Abdomen): normal bowel sounds, soft, nontender, no hepatosplenomegaly (obese) Musculoskeletal: Extremities: extremities normal to inspection; no cyanosis and no clubbing Skin: no rashes, warm and dry Neurologic: moves all extremities and awake; no focal motor deficits Psychiatric: Orientation: alert and oriented x 3 Mood: + anxious mood Results & Data Laboratory Results 09/25/18 09/25/18 09/24/18 Range/Units 07:36 06:56 Unknown Sodium 136 (136-145) mmol/L Potassium 4.4 (3.5-5.1) mmol/L Chloride 102 (98-107) mmol/L Carbon Dioxide 28 (21-32) mmol/L Anion Gap 6.0 (3-11) BUN 32 H (7-18) mg/dl Creatinine 2.95 H D (0.6-1.4) mg/dl Est Cr Clr Drug Dosing 44.8 ml/min Est GFR ( Amer) 27.6 Est GFR (Non-Af Amer) 23.8 BUN/Creatinine Ratio 10.8 (10-20) Glucose 133 H (70-99) mg/dl POC Glucose 132 H (70-99) Calcium 8.4 L (8.5-10.1) mg/dl Phosphorus (2.5-4.9) mg/dl Magnesium (1.8-2.4) mg/dl Albumin (3.4-5.0) gm/dl Ur Random Creatinine 47.3 mg/dl Ur Random Sodium 40 mmol/L 09/24/18 09/24/18 09/24/18 Range/Units 20:10 17:16 17:01 Sodium 136 (136-145) mmol/L Potassium 4.0 (3.5-5.1) mmol/L Chloride 103 (98-107) mmol/L Carbon Dioxide 29 (21-32) mmol/L Anion Gap 4.0 (3-11) BUN 37 H (7-18) mg/dl Creatinine 3.54 H D (0.6-1.4) mg/dl Est Cr Clr Drug Dosing 37.3 ml/min Est GFR ( Amer) 22.1 Est GFR (Non-Af Amer) 19.1 BUN/Creatinine Ratio 10.5 (10-20) Glucose 107 H (70-99) mg/dl POC Glucose 143 H 117 H (70-99) Calcium 8.1 L (8.5-10.1) mg/dl Phosphorus 3.7 (2.5-4.9) mg/dl Magnesium (1.8-2.4) mg/dl Albumin 3.4 (3.4-5.0) gm/dl Ur Random Creatinine mg/dl Ur Random Sodium mmol/L 09/24/18 09/24/18 09/24/18 Range/Units 11:42 08:50 07:40 Sodium 135 L (136-145) mmol/L Potassium 4.1 (3.5-5.1) mmol/L Chloride 103 (98-107) mmol/L Carbon Dioxide 23 (21-32) mmol/L Anion Gap 9.0 (3-11) BUN 40 H (7-18) mg/dl Creatinine 3.87 H D (0.6-1.4) mg/dl Est Cr Clr Drug Dosing 34.1 ml/min Est GFR ( Amer) 19.9 Est GFR (Non-Af Amer) 17.1 BUN/Creatinine Ratio 10.4 (10-20) Glucose 196 H (70-99) mg/dl POC Glucose 131 H 125 H (70-99) Calcium 8.2 L (8.5-10.1) mg/dl Phosphorus 3.5 (2.5-4.9) mg/dl Magnesium 2.4 (1.8-2.4) mg/dl Albumin (3.4-5.0) gm/dl Ur Random Creatinine mg/dl Ur Random Sodium mmol/L (1) ARF (acute renal failure) Acute renal failure type: unspecified Qualified Code(s): N17.9 - Acute kidney failure, unspecified (2) DMII (diabetes mellitus, type 2) Diabetes mellitus complication status: with hyperglycemia Diabetes mellitus retirement insulin use: without electricity trader use Qualified Code(s): E11.65 - Type 2 diabetes mellitus with hyperglycemia (3) CAD (coronary artery disease) Coronary Disease-Associated Artery/Lesion type: [place] artery [place] vs. transplanted heart: [place] heart Associated angina: without angina Qualified Code(s): I25.10 - Atherosclerotic heart disease of [place] coronary artery without angina pectoris (4) Nausea & vomiting Vomiting type: cyclical vomiting Vomiting Intractability: intractable Qual ified Code(s): G43.A1 - Cyclical vomiting, intractable (5) HTN (hypertension) Hypertension type: essential hypertension Qualified Code(s): I10 - Essential (primary) hypertension (6) Constipation Constipation type: unspecified constipation type Qualified Code(s): K59.00 - Constipation, unspecified
[2018-09-24] MEDS: ISOSORBIDE MONO EXTENDED REL 30 MG TABCR PO SCH (11:51)
[2018-09-24] MEDS: METOPROLOL TARTRATE 50 MG TAB PO SCH ×2 (11:51→21:09)
[2018-09-24] MEDS: OXYCODONE HCL IR 5 MG TAB (IMMEDIATE RELEASE) PO PRN ×3 (12:18→21:14)
[2018-09-24 17:43] LABS: Albumin Level 3.4 gm/dl (3.4-5.0); BUN Creatinine Ratio 10.5 (10-20); Calcium 8.1 mg/dl (8.5-10.1); Creatinine Clr Calc Pharmacy 37.3 ml/min; Est GFR (African American) 22.1; Est GFR (Non-African American) 19.1; Phosphorus 3.7 mg/dl (2.5-4.9)
[2018-09-24] MEDS: TRAZODONE HCL 100 MG TAB PO SCH (21:09)
[2018-09-24] MEDS: lamoTRIgine 100 MG TAB PO SCH (21:09)
[2018-09-25] MEDS: OXYCODONE HCL IR 5 MG TAB (IMMEDIATE RELEASE) PO PRN ×5 (05:08→21:51)
[2018-09-25 07:33] LABS: BUN Creatinine Ratio 10.8 (10-20); Calcium 8.4 mg/dl (8.5-10.1); Creatinine Clr Calc Pharmacy 44.8 ml/min; Est GFR (African American) 27.6; Est GFR (Non-African American) 23.8; Potassium 4.4 mmol/L (3.5-5.1)
[2018-09-25] MEDS: DULOXETINE HCL 60 MG CAP PO SCH (07:41)
[2018-09-25] MEDS: ATORVASTATIN 40 MG TAB PO SCH (07:41)
[2018-09-25] MEDS: AMLODIPINE BESYLATE 5 MG TAB PO SCH (07:41)
[2018-09-25] MEDS: CLOPIDOGREL BISULFATE 75 MG TAB PO SCH (07:41)
[2018-09-25] MEDS: ASPIRIN 81 MG ECTAB PO SCH (07:42)
[2018-09-25] MEDS: ISOSORBIDE MONO EXTENDED REL 30 MG TABCR PO SCH (07:42)
[2018-09-25] MEDS: METOPROLOL TARTRATE 50 MG TAB PO SCH ×2 (07:42→21:11)
[2018-09-25 08:38] LABS: INR 1.1 (0.9-1.1); Prothrombin Time 10.8 Seconds (9.0-12.0)
[2018-09-25] MEDS: HEPARIN SOD 5,000 UNIT/0.5 ML VIAL SQ SCH ×3 (08:54→21:03)
[2018-09-25] MEDS: DOCUSATE SODIUM/SENNA 50/8.6MG TAB PO SCH (08:54)
[2018-09-25] MEDS: INSULIN GLARGINE SOLOSTAR 100 UNITS/ML 3 ML PEN SQ SCH (08:55)
[2018-09-25] MEDS: INSULIN ASPART 100 UNITS/ML 3 ML PEN SC SCH ×4 (09:18→20:55)
--- NOTE | 2018-09-25 11:10 | Nephrology Progress Note ---
Date of Service September 25, 2018 Assessment & Plan (1) ARF (acute renal failure): Mr. Mensah is a 48-year-old male with obesity, diabetes mellitus II, hypertension, NAVARRO, hyperlipidemia, bipolar disorder, neuropathy with chronic pain, and coronary artery disease. He was admitted with 4 days of nausea/vomiting and minimal PO intake. Baseline creatinine is normal (<1 mg/dL in July 2018). UA in June was negative for proteinuria. Current UA notable for trace protein but otherwise bland. Urine microscopy did not demonstrate any WBCs, RBCs or casts. CT of the abdomen demonstrated normal appearing kidneys without obstruction. Clinical presentation is consistent with prerenal azotemia and ATN. Creatinine continues to improve. Metabolic profile remains otherwise acceptable. Metformin and losartan have been held. Medications are currently appropriate for kidney function. Creatinine peaked at 4.5 mg/dL on admission. Volume status appears euvolemic. I/O's will be monitored. Metabolic profile will be repeated tomorrow AM. (2) HTN (hypertension): Continue Imdur 30 mg daily as well as metoprolol 50 mg BID per home dosing. Continue to hold losartan. (3) CAD (coronary artery disease): (4) DMII (diabetes mellitus, type 2): Metformin held due to NAPOLEON. Subjective No acute events overnight. Nausea has improved. Appetite is good. Vomiting resolved. He denies abdominal pain. He denies any urinary complaints. He has some anxiety regarding his health but otherwise feels well. Review of Systems All systems reviewed & are unremarkable except as noted in HPI & below Physical Exam Vital Signs (Past 24 Hours): Last Vital Signs Temp 36.9 C 09/25/18 07:22 Pulse 60 09/25/18 07:22 Resp 18 09/25/18 07:22 BP 157/101 H 09/25/18 07:22 Pulse Ox 93 09/25/18 07:22 Constitutional: well developed; no acute distress, not ill appearing and not edematous Eyes: + anicteric sclerae; no scleral abnormality and no corneal abnormality ENMT: Mouth: no oral mucosal abnormality and oral mucous membranes not dry Neck: + thick neck Thyroid: normal thyroid Respiratory: no respiratory distress Auscultation: lungs clear to auscultation bilaterally and + rales (few basilar) Cardiovascular: Rate/Rhythm: regular rate Heart Sounds: normal S1 and normal S2; no gallop, no murmur and no cardiac rub Gastrointestinal (Abdomen): Inspection/Auscultation: + abdomen distended Percussion/Palpation: + abdomen tender (improved tenderness); no guarding Musculoskeletal: Extremities: no cyanosis and no clubbing Skin: no rashes, warm and dry Neurologic: Motor/Sensory: no tremor and no asterixis Psychiatric: Affect: euthymic affect Results & Data Laboratory Results Laboratory Results - last 24 hr 09/24/18 09/24/18 09/24/18 11:42 17:01 17:16 PT INR Sodium 136 Potassium 4.0 Chloride 103 Carbon Dioxide 29 Anion Gap 4.0 BUN 37 H Creatinine 3.54 H D Est Cr Clr Drug Dosing 37.3 Est GFR ( Amer) 22.1 Est GFR (Non-Af Amer) 19.1 BUN/Creatinine Ratio 10.5 Glucose 107 H POC Glucose 131 H 117 H Calcium 8.1 L Phosphorus 3.7 Albumin 3.4 09/24/18 09/25/18 09/25/18 20:10 06:56 07:36 PT INR Sodium 136 Potassium 4.4 Chloride 102 Carbon Dioxide 28 Anion Gap 6.0 BUN 32 H Creatinine 2.95 H D Est Cr Clr Drug Dosing 44.8 Est GFR ( Amer) 27.6 Est GFR (Non-Af Amer) 23.8 BUN/Creatinine Ratio 10.8 Glucose 133 H POC Glucose 143 H 132 H Calcium 8.4 L Phosphorus Albumin 09/25/18 08:10 PT 10.8 INR 1.1 Sodium Potassium Chloride Carbon Dioxide Anion Gap BUN Creatinine Est Cr Clr Drug Dosing Est GFR ( Amer) Est GFR (Non-Af Amer) BUN/Creatinine Ratio Glucose POC Glucose Calcium Phosphorus Albumin (1) ARF (acute renal failure) Acute renal failure type: unspecified Qualified Code(s): N17.9 - Acute kidney failure, unspecified (2) HTN (hypertension) Hypertension type: essential hypertension Qualified Code(s): I10 - Essential (primary) hypertension (3) CAD (coronary artery disease) Coronary Disease-Associated Artery/Lesion type: [place] artery [place] vs. transplanted heart: [place] heart Associated angina: without angina Qualified Code(s): I25.10 - Atherosclerotic heart disease of [place] coronary artery without angina pectoris (4) DMII (diabetes mellitus, type 2) Diabetes mellitus regional intermodal truck driver insulin use: without regional intermodal truck driver use Diabetes mellitus complication status: with hyperglycemia Qualified Code(s): E11.65 - Type 2 diabetes mellitus with hyperglycemia
[2018-09-25] MEDS ORDERED: OXYCODONE HCL IR 5 MG TAB (IMMEDIATE RELEASE) PO STA (13:23)
[2018-09-25] MEDS: GABAPENTIN 300 MG CAP PO SCH ×2 (13:48→21:01)
[2018-09-25] MEDS ORDERED: GABAPENTIN 400 MG CAP PO SCH (14:00)
--- NOTE | 2018-09-25 20:53 | Hospitalist Progress Note ---
Date of Service September 25, 2018 Assessment & Plan (1) ARF (acute renal failure): 2nd to ATN in setting of multiple days of emesis and poor PO intake Creatinine improving slowly w/ supportive measures appreciate nephrology consultation BMP in AM (2) Marijuana abuse: could be the reason he had prolific vomiting prior to admission (3) Nausea & vomiting: resolved but still w/ mild dyspepsia add IV zantac q8h (4) Neuropathy: has been resumed on gabapentin & lyrica this is pt's main complaint he asked for additional oxycodone today (1 time dose) I checked [place] prescription data base -- multiple controlled substances over the last year including oxy, benzos, and stimulants would NOT give narcotics at discharge (5) HTN (hypertension): acceptable control (6) CAD (coronary artery disease): cont statin, asa, plavix, and beta pavan (7) DMII (diabetes mellitus, type 2): control acceptable at this time (8) DVT prophylaxis: heparin SC once creatinine is approaching 2 can likely d/c home Subjective pt states he has mild nausea but no emesis no diarrhea main complaint is that of b/l foot pain from his "neuropathy and [facility]'s neuromas" he had b/l foot surgery for the neuromas denies abd pain denies chest pain 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 [facility] Constitutional: no fever Respiratory: no dyspnea Cardiovascular: no chest pain Physical Exam Vital Signs (Past 24 Hours): Last Vital Signs Temp 36.7 C 09/25/18 15:54 Pulse 56 L 09/25/18 15:54 Resp 17 09/25/18 15:54 BP 127/81 09/25/18 15:54 Pulse Ox 94 09/25/18 15:54 Constitutional: well developed and well nourished; no acute distress and not ill appearing ENMT: external ear and nose normal, oropharynx normal Respiratory: normal respiratory effort, lungs clear to auscultation Cardiovascular: Rate/Rhythm: regular rate and regular rhythm Heart Sounds: normal S1 and normal S2; no murmur Vessels: posterior tibial pulses present and dorsalis pedis pulses present; no JVD Gastrointestinal (Abdomen): normal bowel sounds, soft, nontender, no hepatosplenomegaly Musculoskeletal: multiple scars over b/l feet Psychiatric: A+Ox3, euthymic affect Results & Data Laboratory Results Laboratory Results - last 24 hr 09/24/18 09/25/18 09/25/18 20:10 06:56 07:36 PT INR Sodium 136 Potassium 4.4 Chloride 102 Carbon Dioxide 28 Anion Gap 6.0 BUN 32 H Creatinine 2.95 H D Est Cr Clr Drug Dosing 44.8 Est GFR ( Amer) 27.6 Est GFR (Non-Af Amer) 23.8 BUN/Creatinine Ratio 10.8 Glucose 133 H POC Glucose 143 H 132 H Calcium 8.4 L 09/25/18 09/25/18 09/25/18 08:10 11:45 17:20 PT 10.8 INR 1.1 Sodium Potassium Chloride Carbon Dioxide Anion Gap BUN Creatinine Est Cr Clr Drug Dosing Est GFR ( Amer) Est GFR (Non-Af Amer) BUN/Creatinine Ratio Glucose POC Glucose 139 H 107 H Calcium 09/25/18 20:06 PT INR Sodium Potassium Chloride Carbon Dioxide Anion Gap BUN Creatinine Est Cr Clr Drug Dosing Est GFR ( Amer) Est GFR (Non-Af Amer) BUN/Creatinine Ratio Glucose POC Glucose 116 H Calcium (1) ARF (acute renal failure) Acute renal failure type: unspecified Qualified Code(s): N17.9 - Acute kidney failure, unspecified (2) Nausea & vomiting Vomiting type: cyclical vomiting Vomiting Intractability: intractable Qualified Code(s): G43.A1 - Cyclical vomiting, intractable (3) HTN (hypertension) Hypertension type: essential hypertension Qualified Code(s): I10 - Essential (primary) hypertension (4) CAD (coronary artery disease) Coronary Disease-Associated Artery/Lesion type: [place] artery [place] vs. transplanted heart: [place] heart Associated angina: without angina Qualified Code(s): I25.10 - Atherosclerotic heart disease of [place] coronary artery without angina pectoris (5) DMII (diabetes mellitus, type 2) Diabetes mellitus long term acute care registered nurse insulin use: without skilled nursing use Diabetes mellitus complication status: with hyperglycemia Qualified Code(s): E11.65 - Type 2 diabetes mellitus with hyperglycemia
[2018-09-25] MEDS: lamoTRIgine 100 MG TAB PO SCH (21:02)
[2018-09-25] MEDS: TRAZODONE HCL 100 MG TAB PO SCH (21:02)
[2018-09-25] MEDS: PREGABALIN 100 MG CAP PO SCH (21:08)
[2018-09-26] MEDS: HEPARIN SOD 5,000 UNIT/0.5 ML VIAL SQ SCH ×2 (05:42→12:53)
[2018-09-26] MEDS: OXYCODONE HCL IR 5 MG TAB (IMMEDIATE RELEASE) PO PRN ×4 (05:46→16:24)
[2018-09-26 07:19] LABS: BUN Creatinine Ratio 11.8 (10-20); Calcium 8.8 mg/dl (8.5-10.1); Creatinine Clr Calc Pharmacy 61.4 ml/min; Est GFR (African American) 40.6; Est GFR (Non-African American) 35.1; Potassium 3.9 mmol/L (3.5-5.1)
[2018-09-26] MEDS: AMLODIPINE BESYLATE 5 MG TAB PO SCH (09:04)
[2018-09-26] MEDS: ATORVASTATIN 40 MG TAB PO SCH (09:04)
[2018-09-26] MEDS: GABAPENTIN 300 MG CAP PO SCH ×2 (09:04→14:20)
[2018-09-26] MEDS: METOPROLOL TARTRATE 50 MG TAB PO SCH (09:04)
[2018-09-26] MEDS: DULOXETINE HCL 60 MG CAP PO SCH (09:04)
[2018-09-26] MEDS: CLOPIDOGREL BISULFATE 75 MG TAB PO SCH (09:04)
[2018-09-26] MEDS: ISOSORBIDE MONO EXTENDED REL 30 MG TABCR PO SCH (09:05)
[2018-09-26] MEDS: INSULIN ASPART 100 UNITS/ML 3 ML PEN SC SCH ×2 (09:06→12:52)
[2018-09-26] MEDS: INSULIN GLARGINE SOLOSTAR 100 UNITS/ML 3 ML PEN SQ SCH (09:08)
[2018-09-26] MEDS: DOCUSATE SODIUM/SENNA 50/8.6MG TAB PO SCH (09:10)
[2018-09-26] MEDS: PREGABALIN 100 MG CAP PO SCH (09:14)
[2018-09-26] MEDS: ASPIRIN 81 MG ECTAB PO SCH (09:14)
--- NOTE | 2018-09-26 10:40 | Nephrology Progress Note ---
Date of Service September 26, 2018 Assessment & Plan (1) ARF (acute renal failure): Mr. Mensah is a 48-year-old male with obesity, diabetes mellitus II, hypertension, NAVARRO, hyperlipidemia, bipolar disorder, neuropathy with chronic pain, and coronary artery disease. He was admitted with 4 days of nausea/vomiting and minimal PO intake. -- NAPOLEON due to dehydration in the setting of ARB therapy. Baseline creatinine is ~ 1.0. Urinalysis w/ only trace protein. Urine microscopy was negative for cellular casts. Abdominal CT was negative for hydronephrosis -- Creatinine is trending down w/ hydration. Patient is now tolerating a diet. Will continue to monitor and encourage oral hydration -- Continue to hold Metformin and Losartan (2) HTN (hypertension): -- Continue Imdur 30 mg daily as well as metoprolol 50 mg BID per home dosing. -- Continue to hold Losartan. (3) CAD (coronary artery disease): (4) DMII (diabetes mellitus, type 2): -- Metformin held due to NAPOLEON. Subjective Mr. Mensah was seen & examined in his hospital room this morning. No acute events overnight. Patient reports nausea but notes that his emesis has resolved. He denies fever, abdominal pain or diarrhea Physical Exam Vital Signs (Past 24 Hours): Last Vital Signs Temp 37.0 C 09/26/18 07:28 Pulse 67 09/26/18 07:28 Resp 18 09/26/18 07:28 BP 147/92 H 09/26/18 07:28 Pulse Ox 94 09/26/18 07:28 Eyes: PERRL, conjunctivae normal, anicteric sclerae Neck: trachea midline, no thyromegaly Respiratory: normal respiratory effort, lungs clear to auscultation Cardiovascular: RRR, no murmur, no edema Gastrointestinal (Abdomen): normal bowel sounds, soft, nontender, no hepatosplenomegaly Results & Data Laboratory Results Laboratory Tests 09/23/18 09/23/18 09/26/18 11:40 14:50 06:07 WBC 14.92 H Hgb 16.7 Hct 47.0 Plt Count 215 Sodium 137 Potassium 3.9 Chloride 101 Carbon Dioxide 30 BUN 25 H Creatinine 2.14 H D Glucose 198 H Urine Color Yellow Urine Appearance Clear Urine pH 6.0 Ur Specific [place] 1.008 Urine Protein Trace H Urine Glucose (UA) Negative Urine Ketones Negative Urine Blood Negative Urine RBC 0-4 Urine WBC 0-5 Ur Epithelial Cells >30 H Urine Bacteria Negative Diagnostic Findings Abd CT 09/23/18: 1. No acute intra-abdominal pathology. 2. Hepatic steatosis. Correlate with liver function tests to exclude steatohepatitis as a cause for abdominal pain. 3. Mild cardiomegaly. (1) ARF (acute renal failure) Acute renal failure type: unspecified Qualified Code(s): N17.9 - Acute kidney failure, unspecified (2) HTN (hypertension) Hypertension type: essential hypertension Qualified Code(s): I10 - Essential (primary) hypertension (3) CAD (coronary artery disease) Coronary Disease-Associated Artery/Lesion type: [place] artery [place] vs. transplanted heart: [place] heart Associated angina: without angina Qualified Code(s): I25.10 - Atherosclerotic heart disease of [place] coronary artery without angina pectoris (4) DMII (diabetes mellitus, type 2) Diabetes mellitus auto hauler insulin use: without auto hauler use Diabetes mellitus complication status: with hyperglycemia Qualified Code(s): E11.65 - Type 2 diabetes mellitus with hyperglycemia
--- NOTE | 2018-10-03 06:53 | Discharge Summary ---
Date of Service date of admission - 09/23/18 date of discharge - 09/26/18 Admission HPI Per Admitting Provider 48 y/o M Hx HTN, Hyperlipidemia, DM II, neuropathy, bipolar disorder, CAD/stents. Presents with 4 days of nausea/vomiting and minimal PO intake. Denies diarrhea and may be constipated. He does report cramping, generalized abdominal pain. A CT abdomen did not show any acute pathology. Initial labs are notable for ARF with a creatinine of 4.5, hyponatremia and minimal lipase elevation. Principal Diagnosis acute kidney injury / acute renal failure Discharge Exam Constitutional well developed, well nourished and + obese; no acute distress and not ill appearing ENMT external ear and nose normal, oropharynx normal Respiratory normal respiratory effort, lungs clear to auscultation Cardiovascular Rate/Rhythm: regular rate and regular rhythm Heart Sounds: normal S1 and normal S2; no murmur Vessels: posterior tibial pulses present and dorsalis pedis pulses present; no JVD Gastrointestinal (Abdomen) normal bowel sounds, soft, nontender, no hepatosplenomegaly Psychiatric A+Ox3, euthymic affect Discharge Data Allergies Allergy/AdvReac Type Severity Reaction Status Date / Time No Known Allergies Allergy Unverified 09/23/18 11:35 Consultations [facility] - Dirk Noriega MD Ordered Studies CT abd/pelvis - IMPRESSION: 1. No acute intra-abdominal pathology. 2. Hepatic steatosis. Correlate with liver function tests to exclude steatohepatitis as a cause for abdominal pain. 3. Mild cardiomegaly. Hospital Course (1) ARF (acute renal failure): 2nd to ATN in setting of multiple days of emesis and poor PO intake prior to admission. Admission creatinine - 4.4. Discharge creatinine - 2.1. Creatinine improved slowly with supportive measures and IV fluids. Seen by nephrology and they concurred that his NAPOLEON was due to ATN. At discharge the following were recommended- 1. to HOLD the metformin 2. to HOLD the losartan 3. to have repeat BMP within 2-3 days upon return to [place] the patient's hometown to ensure the creatinine is stable 4. NO NSAID use (2) Marijuana abuse: could be the reason he had prolific vomiting prior to admission. he has had similar admissions to [facility] in the past and his vomiting was attributed to THC use. (3) Nausea & vomiting: Placed on zantac for upper GI symptoms and dyspepsia. If upper GI symptoms persist consider outpatient GI referral for consideration of endoscopy. Lipase was minimally high duing the visit but felt to be reactive rather than reflective of acute pancreatitis. His pancreas appeared normal on CT. (4) Neuropathy: He will continue gabapentin and lyrica as previous. Apparently the gabapentin was being weaned as the lyrica was being titrated upward. Defer management to his outpatient PCP. (5) HTN (hypertension): acceptable control even without his ARB. again the ARB was advised to be held at discharge due to his acute renal failure. (6) CAD (coronary artery disease): cont statin, asa, plavix, and beta pavan (7) DMII (diabetes mellitus, type 2): control acceptable during the stay. he was advised to hold his metformin at discharge due to acute renal failure. Total Time Total Time Spent Total Time Spent (In Minutes): 40 Total Time Includes: Examination of the Patient, Discharge Planning and Medication Reconciliation Discharge Plan Discharge Items Patient Disposition: Home - Self-Care Reason For Visit: acute renal failure Discharge Diagnosis: acute renal failure due to severe dehydration -improving Discharge Goals: Diagnostic testing Activity: Resume your previous activity Non-emergency contact: Primary Care Provider Call non-emergency contact if: you have any medication questions, your symptoms worsen and your temperature is above 100.5 Follow-up/Referrals: Dirk Suarez, [Primary Care Provider] - 10/04/18 8:50 am (Please, follow up with Dr. iDrk Suarez on WednesdayOctober 04 at 8:50 am. *If you need to change this appointment, call the office at [phone]. ) Diet: Carb Consistent or DM2 Addtl Provider Instructions: From Del Cardozo - Hospitalist - You were treated for acute renal failure. This means that your creatinine level - a marker of your kidney function - went up quite high. The creatinine peaked at 4.4, and improved to 2.1 on day of discharge. It was felt that you developed significant dehydration from vomiting which led to the creatinine going up. At this time we recommend the following - 1. STOP your metformin. 2. STOP your losartan. Hopefully your metformin & losartan can be resumed in the future (next couple of weeks). 3. DO NOT TAKE any [id number] aspirin, motrin, ibuprofen, naprosyn, alleve, etc. It is ok to continue your baby aspirin for now. 4. for nausea - ondanestron 4mg every 6 hours as needed. 5. for stomach discomfort - zantac (ranitidine) 150mg twice a day for 1-2 weeks. 6. avoid spicy foods, alcohol, fried foods, fast foods, coffee/soda/tea -- at least for 1-2 weeks. 7. have a repeat "BMP" (basic metabolic panel) in 2 days back home in [place]. These results will need to go to your family doctor. 8. follow-up - see separate section. 9. return to any hospital if - * you have recurrent vomiting that is not responding to your nausea medication * you have uncontrolled pain * you have chest pain or shortness of breath * any other concerns Prescriptions: New ranitidine HCl [Zantac] 150 mg tablet 150 mg PO BID Qty: 30 RF: 0 ondansetron 4 mg tablet,disintegrating 4 mg PO Q6H PRN (Reason: nausea and vomiting) Qty: 14 RF: 0 Continued lamotrigine [Lamictal] 200 mg Tablet 200 mg PO HS RF: 0 clopidogrel [Plavix] 75 mg Tablet 75 mg PO DAILY RF: 0 aspirin 81 mg Tablet,Delayed Release (Dr/Ec) 81 mg PO DAILY RF: 0 trazodone 100 mg Tablet 100 mg PO HS RF: 0 amlodipine 10 mg Tablet 10 mg PO DAILY RF: 0 duloxetine 60 mg Capsule,Delayed Release(Dr/Ec) 60 mg PO DAILY RF: 0 atorvastatin 20 mg Tablet 40 mg PO DAILY Qty: 0 RF: 0 Basaglar KwikPen U-100 Insulin 100 unit/mL (3 mL) insulin pen 30 unit subcut DAILY RF: 0 gabapentin 400 mg Capsule 400 mg PO TID RF: 0 isosorbide mononitrate 30 mg tablet extended release 24 hr 30 mg PO QAM RF: 0 metoprolol tartrate 50 mg tablet 50 mg PO BID RF: 0 Lyrica 100 mg capsule 100 mg PO BID RF: 0 Discontinued metformin 1,000 mg Tablet 1,000 mg PO DAILY RF: 0 losartan 100 mg Tablet 100 mg PO DAILY RF: 0 Stand-Alone Forms: [facility] Discharge Orders: Discharge Order (Routine); Ordered 09/26/18 Ordered By: Del Cardozo Admission Data Admit Date/Time: 09/23/18 16:30 Attending Provider: Del Cardozo Admit Provider: Alejandro Anguiano Primary Care Provider: Dirk Suarez Other Providers: Alejandro Anguiano Service: Medical Other Interventions: Discharge Summary Assessment (RN) Last Done: 09/26/18 15:37 DC Date/Time DO NOT enter until pt leaves facility: 09/26/18 16:48
== END 2018-09-26 16:48 | disposition home or self-care (01) | DRG 683 ==
LOC: ED 10:45 → 4W 16:30 → SUATTDRO 16:30 → 4W 17:22
DX: G57.63 Lesion of plantar nerve, bilateral lower limbs; I10 Essential (primary) hypertension; E87.1 Hypo-osmolality and hyponatremia; Z79.82 Long term (current) use of aspirin; F12.188 Cannabis abuse with other cannabis-induced disorder; K59.03 Drug induced constipation; T40.2X5A Adverse effect of other opioids, initial encounter; K31.89 Other diseases of stomach and duodenum; Z87.891 Personal history of nicotine dependence; R11.2 Nausea with vomiting, unspecified; Z79.02 Long term (current) use of antithrombotics/antiplatelets; I25.10 Atherosclerotic heart disease of native coronary artery without angina pectoris; R10.13 Epigastric pain; Z68.35 Body mass index [BMI] 35.0-35.9, adult; I25.2 Old myocardial infarction; Z79.899 Other long term (current) drug therapy; E66.9 Obesity, unspecified; E78.5 Hyperlipidemia, unspecified; G89.29 Other chronic pain; E11.65 Type 2 diabetes mellitus with hyperglycemia; Z79.4 Long term (current) use of insulin; E11.40 Type 2 diabetes mellitus with diabetic neuropathy, unspecified; F31.9 Bipolar disorder, unspecified; Z95.5 Presence of coronary angioplasty implant and graft; N17.0 Acute kidney failure with tubular necrosis; E86.0 Dehydration